=== PATIENT | female | born 1975 | race Caucasian/White ===

== ENCOUNTER 2022-03-03 12:08 | Outpatient (CLI) | payer OTHER, SELFPAY ==
--- NOTE | ~2022-03-03 | XR_ITS ---
EXAM: XR wrist RT 2V DATE: 03/03/2022 12:28 HISTORY: M79.646 - Pain in unspecified finger(s) . COMPARISON: None available. FINDINGS: Normal mineralization. No fracture or dislocation. No lytic or blastic lesion. Joint space s are maintained. No erosion or periosteal change. Soft tissues within normal limits. IMPRESSION: No acute osseous finding in the right wrist. Reviewed, dictated and finalized at location [facility].
== END 2022-03-03 12:09 | disposition home or self-care (01) ==
PROVIDERS: PCP Family Medicine; Visit Provider Nurse Practitioner Family
DX: M25.531 Pain in right wrist (principal); M79.644 Pain in right finger(s)
CPT/HCPCS: 73100

== ENCOUNTER 2023-05-10 11:57 | Emergency (ER) | payer OTHER, SELFPAY ==
--- NOTE | ~2023-05-10 | CT_ITS ---
EXAMINATION: CT abdomen pelvis w con DATE: 05/10/2023 14:45 INDICATION: Right lower quadrant, right flank abdominal pain. Hematuria. TECHNIQUE: Computed tomography (CT) of the abdomen and pelvis was performed with 100 CC Omnipaque 350 intravenous contrast. Automated exposure control and iterative reconstruction technique were employe d. Exam dose: 550.27 mGy-cm total exam DLP. COMPARISON: None. FINDINGS: Calcified right lower lobe pulmonary granuloma. The lung bases are clear of infiltrate or consolidation. Normal heart size. No pericardial or pleural effusion or pneumothorax. The liver, gallbladder, bile ducts, pancreas and pancreatic duct are unremarkable. Spleen is within u pper normal limits for size at approximately 13.5 cm vertical dimension. No renal mass lesion or urinary tract calculus or hydroureteronephrosis is detected. Normal caliber of the abdominal aorta. No intraperitoneal or retroperitoneal or pelvic mass lesion or adenopathy or ascites is noted. Normal appendix. No bowel obstruction or intraperitoneal free air. There is uterine enlargement. Bilateral ovarian cysts, measuring up to 10 mm on the left, 17 mm on the right. The urinary bladder wall appears thickened and irregular, but the bladder is evacuated, limiting eval uation. Cystitis is not excluded. No suspicious osteolytic or osteoblastic lesions. IMPRESSION: Normal appendix No urinary tract calculus or hydroureteronephrosis The bladder wall appears thickened and irregular but is not optimally evaluated due to the bladder is evacuated; consider cystitis Uterine enlargement and bilateral ovarian cysts Reviewed, dictated and finalized at [facility]. Reviewed, dictated and finalized at location L.
[2023-05-10 11:59] VITALS: BP 126/91; PULSE 139; RESP 22; TEMP 36.1; O2SAT 100
--- NOTE | 2023-05-10 12:03 | ECG_ITS ---
Measurements Intervals [place] Rate: 131 P: 18 DC: 152 QRS: 14 QRSD: 85 T: 19 QT: 333 QTc: 492 Interpretive Statements SINUS TACHYCARDIA NONSPECIFIC T-WAVE ABNORMALITY- INFERIOR LEADS BASELINE ARTIFACT- I, AVR, V4-V6 ABNORMAL ECG NO PREVIOUS ECG AVAILABLE FOR COMPARISON Electronically Signed On 05-11-2023 6:33:19 CDT by Derrick Mondragon D.O.
[2023-05-10 12:26] LABS: Basophils Percent Auto 0.3 % (0.2-1.2); Eosinophils Percent Auto 0.2 % (0-4.4); Hematocrit 39.3 % (37.0-47.0); Hemoglobin 12.1 g/dL (12.0-15.0); Immature Granulocyte Absolute 0.02 K/mm3 (0.00-0.031); Immature Granulocyte Percent A 0.3 % (0-0.5); Lymphocytes Absolute Auto 1.23 K/mm3 (0.9-3.2); Lymphocytes Percent Auto 19.5 % (18.3-44.2); Mean Corpuscular HGB Conc 30.8 g/dl (32-36); Mean Corpuscular Hemoglobin 25.2 pg (26-34); Mean Corpuscular Volume 81.9 fl (80-100); Mean Platelet Volume 10.8 fl (7.4-10.4); Monocytes Absolute Auto 0.4 K/mm3 (0.1-0.6); Monocytes Percent Auto 6.7 % (2.6-8.5); Neutrophils Absolute Auto 4.6 K/mm3 (1.3-6.7); Platelet Count Result 247 k/mm3 (150-375); Red Cell Distribution Width 14.8 % (11.5-14.5); White Blood Count 6.3 K/mm3 (4.5-10.0)
[2023-05-10 12:35] LABS: Alanine Aminotransferase 18 U/L (6-35); Albumin Level 4.6 g/dL (3.5-5.1); Alkaline Phosphatase 69 U/L (38-126); Anion Gap 11 mmol/L (8-16); Aspartate Amino Transferase 25 U/L (14-36); Bilirubin,Total 0.7 mg/dL (0.2-1.3); Blood Urea Nitrogen 8 mg/dL (7-17); Calcium 9.4 mg/dL (8.4-10.2); Carbon Dioxide 24 mmol/L (22-30); Chloride 103 mmol/L (98-107); Estimated CRCL calculation 85 ml/min; Estimated Glomerular Filt Rate > 60; Glucose 131 mg/dL (65-110); Potassium 3.7 mmol/L (3.4-5.0); Sodium 138 mmol/L (137-145)
[2023-05-10 12:37] LABS: Appearance Urine Turbid (Clear); Bacteria Urine 2+ /hpf; Color Urine Red (Yellow); Need Manual Microscopic Reviewed; Non Pathogenic Casts 0-2; RBC Urine >100 /hpf (0-2); Squamous Epithelial Cell Urine Moderate /hpf (Few); WBC Urine >100 /hpf
[2023-05-10 12:39] LABS: Add Urine Microscopic? YES
--- NOTE | 2023-05-10 14:16 | ED.FEMALEGU ---
HPI - Female Genitourinary General Chief complaint: Urogenital-Female Stated complaint: chills, hematuria, flank pain Time Seen by Provider: 05/10/23 13:37 Source: patient and family Mode of arrival: ambulatory History of Present Illness HPI Narrative: Patient presents with right lower quadrant, right lower back pain that started this morning with urinary frequency, hematuria, burning sensation with chills and nausea. Went to her family physician office, urine analysis showed too much blood, referred to the emergency room to rule out the possibility of kidney stone. No history of kidney stone. Patient is healthy otherwise, she is telling me that she have stomach bug 3 days ago, associated with nausea, vomiting and diarrhea which are resolving. Related Data Allergies Allergy/AdvReac Type Severity Reaction Status Date / Time No Known Allergies Allergy Verified 02/15/23 08:56 Review of Systems Review of Systems: All systems reviewed & are unremarkable except as noted in HPI and below PMFSH Past Medical History Medical History Anxiety disorder, unspecified BMI 23.0-23.9, adult BMI 26.0-26.9,adult BMI 29.0-29.9,adult Surgical History Surgical History H/O tubal ligation H/O: Family History Family History Mother Family history of coronary artery disease Hypertension Acute myocardial infarction Father Non Hodgkin's lymphoma Sibling No problems noted. 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 Gender identity (if verbalized by the patient): Female Exam Narrative: General appearance: Well-developed, well-nourished Skin: Normal color Head: Normocephalic, nontraumatic Eyes: Clear conjunctiva ENT: Oropharynx normal, ears normal, nose normal Neck: Supple, nontender Chest and respiratory: Airway patent, no respiratory distress, no accessory muscle use Heart: Regular rate/rhythm Abdomen: Soft, right lower quadrant tenderness, no guarding or rebound, no organomegaly, quiet bowel sounds Vascular: Normal peripheral pulses, normal capillary refill. Musculoskeletal: Normal range of motion, nontender back Neurologic: Alert and oriented ?3, [employer] is normal as tested, no gross motor deficit Course Vital Signs Vital signs: Vital Signs Temperature 36.1 C L 05/10/23 11:59 Pulse Rate 139 H 05/10/23 11:59 Respiratory Rate 22 H 05/10/23 11:59 Blood Pressure 126/91 H 05/10/23 11:59 Pulse Oximetry 100 05/10/23 11:59 Oxygen Delivery Room Air 05/10/23 11:59 Temperature 36.1 C L 05/10/23 11:59 Pulse Rate 139 H 05/10/23 11:59 Respiratory Rate 22 H 05/10/23 11:59 Blood Pressure 126/91 H 05/10/23 11:59 Pulse Oximetry 100 05/10/23 11:59 Oxygen Delivery Room Air 05/10/23 11:59 MDM - Female Genitourinary MDM Narrative Medical decision making narrative:
[2023-05-10] MEDS: ONDANSETRON INJ 4 MG/2 ML VIAL IV PUSH (14:29)
[2023-05-10] MEDS: HYDROmorphone HCL INJ (*CRX) 1 MG/ML SYR 0.5 MG IV PUSH (14:30)
[2023-05-10] MEDS: SODIUM CHLORIDE 0.9% IV 1,000 ML 999 ML IV CONT (14:34)
[2023-05-10 18:03] VITALS: BP 100/68; PULSE 70; RESP 20; TEMP 36.7; O2SAT 100
== END 2023-05-10 18:06 | disposition home or self-care (01) ==
PROVIDERS: Emergency Medicine; Emergency Provider Emergency Medicine; PCP Family Medicine
DX: N39.0 Urinary tract infection, site not specified (principal); Z87.891 Personal history of nicotine dependence
CPT/HCPCS: 36415; 74177; 80053; 81001; 81025; 85025; 87086; 87088; 87147; 93005; 96365; 96375; 99284; J0696; J1170; J2405; J7030; Q9967